=== PATIENT | female | born 1985 | race African-American/Black ===

== ENCOUNTER 2017-04-18 20:15 | Emergency (ER) | payer OTHER ==
[2017-04-18] MEDS ORDERED: Lorazepam 2 MG/ML VIAL ONE (20:41)
[2017-04-18] MEDS ORDERED: Metoclopramide HCl 10 MG/2 ML VIAL ONE (20:41)
[2017-04-18] MEDS ORDERED: Ketorolac Tromethamine 30 MG/ML VIAL ONE (20:41)
[2017-04-18] MEDS ORDERED: Fentanyl 100 MCG/2 ML VIAL ONE (20:41)
[2017-04-18] MEDS ORDERED: Dexamethasone 4 mg/ml Vial ONE (20:41)
[2017-04-18 20:44] LABS: #Basophils 0.1 thou/uL (0.0-0.2); #Eosinphils 0.2 thou/uL (0.0-0.7); #Lymphocytes 2.9 thou/uL (1.20-3.40); #Monocytes 0.5 thou/uL (0.11-0.59); #Neutrophils 8.6 thou/uL (1.40-6.50); %Basophils 0.7 % (0.0-1.0); %Eosinophils 1.9 % (0.0-10.0); %Lymphocytes 23.3 % (21.0-51.0); %Monocytes 4.4 % (0.0-10.0); Hematocrit 41.1 % (36.0-47.0); White Blood Cell (WBC) Count 12.3 thou/uL (4.8-10.8)
[2017-04-18 21:09] LABS: Troponin I Less than 0.010 ng/mL (< 0.028)
--- NOTE | 2017-04-18 21:19 | RAD ---
AP VIEW CHEST: 04/18/17 HISTORY: Chest pain associated with cough. AP view chest is obtained. The lungs are well aerated. No evidence of active intrathoracic disease s een. No evidence of effusions, pneumonia, or pneumothorax seen. IMPRESSION: Unremarkable AP view chest. POS: [facility]
--- NOTE | 2017-04-18 21:21 | CT ---
CT BRAIN: 04/18/17 HISTORY: 32-year-old female with history of severe headache. A noncontrast enhanced CT images of the brain is obtained from base of skull to the vertex. The brai n and bone windows obtained. CT images of the brain demonstrate the brain to be unremarkable. No evidence of intracranial masses, hemorrhages or strokes or contusions seen. Ventricle are of normal size. IMPRESSION: Normal CT brain. POS: [facility]
[2017-04-18 21:59] LABS: Calcium 9.3 mg/dL (7.8-10.44); Chloride 102 mmol/L (98-107)
[2017-04-18 22:00] LABS: Globulin 3.9 g/dL (2.4-3.5)
[2017-04-18 22:01] LABS: Anion Gap 13 mmol/L (10-20); Carbon Dioxide 26 mmol/L (22-29)
[2017-04-18 22:02] LABS: Bilirubin, Total 0.5 mg/dL (0.2-1.2)
[2017-04-18 22:03] LABS: Alkaline Phosphatase 118 U/L (40-150)
[2017-04-18 22:04] LABS: BUN (Urea Nitrogen) 9 mg/dL (7.0-18.7); Calc. Creatinine Clearance 0 mL/min (70-130); Estimated GFR-MDRD Greater than 90
[2017-04-18 22:05] LABS: AST (SGOT) 20 U/L (5-34)
[2017-04-18 22:06] LABS: ALT (SGPT) 28 U/L (8-55); CK (CPK) 219 U/L (29-168); Lipase 23 U/L (8-78)
== END 2017-04-18 22:34 | disposition home or self-care (01) ==
LOC: ERS 20:15
DX: R51 Headache (principal); F41.9 Anxiety disorder, unspecified; H66.92 Otitis media, unspecified, left ear; E11.9 Type 2 diabetes mellitus without complications; I10 Essential (primary) hypertension; G89.29 Other chronic pain; M54.9 Dorsalgia, unspecified
CPT/HCPCS: 36415; 70450; 71010; 80053; 82553; 83690; 84484; 85025; 93005; 96365; 96375; J1100; J1885; J2060; J2765; J3010

== ENCOUNTER 2017-07-28 19:30 | Outpatient (CLI) | payer OTHER | END 2017-07-28 19:31 | disposition home or self-care (01) | LOC: SLEEPLAB 19:30 | PROVIDERS: ATTEND Internal Medicine | DX: G47.33 Obstructive sleep apnea (adult) (pediatric) (principal); G47.10 Hypersomnia, unspecified; R06.83 Snoring; R06.81 Apnea, not elsewhere classified; G47.00 Insomnia, unspecified | CPT/HCPCS: 95811 ==

== ENCOUNTER 2017-08-10 09:46 | Emergency (ER) | payer OTHER ==
[2017-08-10] MEDS ORDERED: Acetaminophen 500 MG TAB ONE (11:01)
== END 2017-08-10 11:30 | disposition home or self-care (01) ==
LOC: ERS 09:46
DX: B34.9 Viral infection, unspecified (principal); E11.9 Type 2 diabetes mellitus without complications; I10 Essential (primary) hypertension; G43.909 Migraine, unspecified, not intractable, without status migrainosus; F41.9 Anxiety disorder, unspecified
CPT/HCPCS: 99283

== ENCOUNTER 2017-08-17 15:44 | Emergency (ER) | payer OTHER ==
[2017-08-17] MEDS ORDERED: Ibuprofen 200 MG TAB ONE (16:07)
[2017-08-17] MEDS ORDERED: traMADol HCl 50 MG TAB ONE (16:14)
--- NOTE | 2017-08-17 16:27 | RAD ---
CHEST 1 VIEW: HISTORY: A 32-year-old female with a history of chest pain worse with coughing and lifting arm without fever. COMPARISON: 04/18/17. FINDINGS: Monitor leads overlie the chest. Exam is somewhat limited because of large body habitus. No conflue nt pneumonia, overt edema, or pleural effusion. IMPRESSION: No acute intrathoracic disease. Stable from prior study. POS: [facility]
[2017-08-17] MEDS ORDERED: Ketorolac Tromethamine 30 MG/ML VIAL ONE (16:45)
[2017-08-17] MEDS ORDERED: Benzonatate 100 MG CAP ONE (16:45)
== END 2017-08-17 17:31 | disposition home or self-care (01) ==
LOC: ERS 15:44
DX: J98.01 Acute bronchospasm (principal); J06.9 Acute upper respiratory infection, unspecified; R07.89 Other chest pain; E11.9 Type 2 diabetes mellitus without complications; I10 Essential (primary) hypertension; G43.909 Migraine, unspecified, not intractable, without status migrainosus; F41.9 Anxiety disorder, unspecified; Z79.899 Other long term (current) drug therapy; Z79.4 Long term (current) use of insulin; Z79.82 Long term (current) use of aspirin
CPT/HCPCS: 71045; 93005; 96372; J1885

== ENCOUNTER 2018-01-11 17:43 | Observation (INO) | payer OTHER, SELFPAY ==
[~2018-01-11 17:43] MED LIST: ISOVUE-370 76%-LOCM 1 ML ONE
[2018-01-11 18:25] LABS: #Basophils 0.1 thou/uL (0.0-0.2); #Eosinphils 0.3 thou/uL (0.0-0.7); #Lymphocytes 4.3 thou/uL (1.20-3.40); #Monocytes 0.6 thou/uL (0.11-0.59); #Neutrophils 6.5 thou/uL (1.40-6.50); %Basophils 0.9 % (0.0-1.0); %Eosinophils 2.5 % (0.0-10.0); %Lymphocytes 36.5 % (21.0-51.0); %Monocytes 5.4 % (0.0-10.0); %Neutrophils 54.7 % (42.0-75.0); Hemoglobin 12.4 g/dL (12.0-16.0); Mean Corpuscular HGB CONC 33.2 g/dL (32.0-36.0); Mean Corpuscular Hemoglobin 31.2 pg (27.0-31.0); Mean Platelet Volume 6.6 fL (7.4-10.4); Platelet Count 426 thou/uL (130-400); RBC Distribution Width 11.7 % (11.5-14.5); Red Blood Cell (RBC) Count 3.98 mill/uL (4.20-5.40); White Blood Cell (WBC) Count 11.8 thou/uL (4.8-10.8)
[2018-01-11 18:30] LABS: BHCG - Serum Negative (NEGATIVE); Pregs Control Background? CLEAR/WHITE (CLR/WHITE); Pregs Control Bar Appear? YES (CONTROL BAR)
[2018-01-11 18:48] LABS: ALT (SGPT) 36 U/L (8-55); AST (SGOT) 28 U/L (5-34); Albumin 4.4 g/dL (3.5-5.0); Alkaline Phosphatase 106 U/L (40-150); Anion Gap 15 mmol/L (10-20); BUN (Urea Nitrogen) 12 mg/dL (7.0-18.7); Bilirubin, Total 0.5 mg/dL (0.2-1.2); CK (CPK) 276 U/L (29-168); Calc. Creatinine Clearance 0 mL/min (70-130); Calcium 9.7 mg/dL (7.8-10.44); Carbon Dioxide 26 mmol/L (22-29); Chloride 99 mmol/L (98-107); Estimated GFR-MDRD 84; Globulin 3.8 g/dL (2.4-3.5); Glucose 157 mg/dL (70-105); Lipase 28 U/L (8-78); Potassium 3.7 mmol/L (3.5-5.1); Protein, Total 8.2 g/dL (6.0-8.3); Sodium 136 mmol/L (136-145)
[2018-01-11 18:53] LABS: CKMB 1.3 ng/mL (0-6.6); Troponin I Less than 0.010 ng/mL (< 0.028)
[2018-01-11 19:13] LABS: Bilirubin Negative (Negative); Blood, Urine Negative (Negative); Clarity CLEAR (Clear); Glucose, Urine (Dipstick) Negative (Negative); Leukocyte Negative (Negative); Nitrite Negative (Negative); Protein, Urine (Dipstick) Negative (Neg-Trace); Specific Gravity, Urine 1.026 (1.002-1.036)
--- NOTE | 2018-01-11 19:15 | RAD ---
SINGLE VIEW OF THE CHEST: 01/11/18 COMPARISON: 08/17/17 HISTORY: Chest pain. FINDINGS: Single view of the chest shows a normal sized cardiomediastinal silhouette. There is no evidence of c onsolidation, mass, or pleural effusion. The bones are unremarkable. IMPRESSION: No evidence of acute cardiopulmonary disease. POS: [facility]
[2018-01-11 20:12] LABS: Acetaminophen Less than 6.0 mcg/mL (10.0-30.0); Alcohol Less than 10 mg/dL (Less than 10); Salicylate Less than 8.0 mg/dL (15.0-30.0)
[2018-01-11] MEDS ORDERED: Enoxaparin Sodium 80 MG/0.8 ML SYRINGE ONE (21:02)
[2018-01-11] MEDS ORDERED: Metoprolol Tartrate 5 MG/5 ML VIAL ONE (21:08)
--- NOTE | 2018-01-11 21:25 | CT ---
CT ANGIOGRAM THORAX WITH IV CONTRAST AND 3D RECONSTRUCTIONS 01/11/18 HISTORY: Chest tightness and heart palpitations, shortness of breath. COMPARISON: None available. FINDINGS: There is suboptimal timing of the contrast bolus, and the pulmonary arteries are not well opacified. There is no large filling defect seen involving the central pulmonary arteries, but a pulmonary embol us involving the segmental or subsegmental pulmonary arteries cannot be excluded based on this exam. Thoracic aorta is normal in caliber without evidence of an aortic dissection. There is dependent atelectasis. The lungs are otherwise clear. No pulmonary nodule, mass, or pleural effusion is seen. Upper abdomen demonstrates post cholecystectomy changes. The visualized liver demonstrates decreased attenuation suggesting diffuse fatty infiltration. Post cholecystectomy changes are noted. IMPRESSION: 1. Suboptimal evaluation for pulmonary embolus due to the timing of the contrast bolus. While no definite pulmonary embolus is seen involving the central pulmonary arteries, pulmonary embolus at th e segmental or subsegmental levels could not be excluded based on this exam. 2. Thoracic aorta is normal in caliber. 3. Diffuse fatty infiltration of the liver. POS: [facility]
[2018-01-11 21:46] LABS: Amphetamine Not Detected (NotDetected); Barbiturates Screen Not Detected (NotDetected); Benzodiazepine Screen Not Detected (NotDetected); Cocaine Metabolite Screen Not Detected (NotDetected); Medtox Control Line Valid? VALID (VALID); Medtox Reader # READER 1; Methadone Not Detected (NotDetected); Methamphetamine Not Detected (NotDetected); Opiate Screen Not Detected (NotDetected); Oxycodone Screen Not Detected (NotDetected); Phencyclidine (PCP) Not Detected (NotDetected); THC/Cannabinoid Screen Not Detected (NotDetected); Tricyclic Screen Detected (NotDetected)
[2018-01-11] MEDS ORDERED: Sodium Bicarb 50 MEQ/50 ML Abboject 8.4% SYRINGE ONE (21:55)
[2018-01-11 22:18] LABS: Troponin I Less than 0.010 ng/mL (< 0.028)
[2018-01-11] MEDS ORDERED: Sodium Chloride 0.9% 1,000 ML IV SCH (22:45)
[2018-01-11] MEDS ORDERED: Ondansetron ODT 4 MG TAB SL PRN (22:46)
[2018-01-11] MEDS ORDERED: Ondansetron HCl/PF 4 MG/2 ML Vial IVP PRN (22:46)
[2018-01-11] MEDS ORDERED: PROVENTIL INHALER 6.7 G (200 INHALATIONS) INH PRN (23:23)
[2018-01-11] MEDS ORDERED: Dextrose 5% in Water 1,000 ML IV PRN (23:27)
[2018-01-11] MEDS ORDERED: Insulin Regular 300 UNITS/3 ML VIAL SC PRN (23:27)
[2018-01-11] MEDS ORDERED: Dextrose 50% Abboject 50 ML SYRINGE SLOW IVP PRN (23:27)
[2018-01-11] MEDS ORDERED: Fluticasone Propionate Nasal Spray 16 gm Bottle NASAL SCH (23:45)
[2018-01-11] MEDS ORDERED: Atorvastatin Calcium 40 MG TAB PO SCH (23:45)
[2018-01-11] MEDS ORDERED: Cyclobenzaprine 10 MG TAB PO SCH (23:45)
[2018-01-11] MEDS ORDERED: Cetirizine HCl 10 MG TAB PO SCH (23:45)
[2018-01-11] MEDS ORDERED: busPIRone HCl 10 MG TAB PO SCH (23:45)
[2018-01-12] MEDS ORDERED: Gabapentin 400 MG CAP PO SCH (00:01)
[2018-01-12] MEDS ORDERED: Insulin Glargine 50 UNITS in Pre-Filled Syringe 1 EACH SC SCH ×2 (00:15→21:00)
[2018-01-12 01:18] LABS: Troponin I 0.018 ng/mL (< 0.028)
[2018-01-12] MEDS ORDERED: Mometasone/Formoterol 120 PUFF INHALER INH SCH (06:30)
[2018-01-12] MEDS ORDERED: Acetaminophen 325 MG TAB PO PRN (08:55)
[2018-01-12] MEDS ORDERED: Dextrose 50% Abboject 50 ML SYRINGE SLOW IVP PRN (08:55)
[2018-01-12] MEDS ORDERED: Dextrose 5% in Water 1,000 ML IV PRN (08:55)
[2018-01-12] MEDS ORDERED: Furosemide 20 MG TAB PO SCH (09:00)
[2018-01-12] MEDS ORDERED: Meloxicam 15 MG TAB PO SCH (09:00)
[2018-01-12] MEDS ORDERED: Hydrochlorothiazide 25 MG TAB PO SCH (09:00)
[2018-01-12] MEDS ORDERED: [UNRECOGNIZED DRUG - OTHER] EA EYE SCH (09:00)
[2018-01-12] MEDS ORDERED: Fluticasone Propionate Nasal Spray 16 gm Bottle NASAL SCH (09:00)
[2018-01-12] MEDS ORDERED: busPIRone HCl 10 MG TAB PO SCH (09:00)
[2018-01-12] MEDS ORDERED: Losartan 25 MG TAB PO SCH (09:00)
[2018-01-12] MEDS ORDERED: Azelastine 137 MCG/Spray 30 ML NS SCH (09:00)
[2018-01-12] MEDS ORDERED: cloNIDine 0.1 MG TAB PO SCH (09:00)
[2018-01-12] MEDS ORDERED: Aspirin 325 MG TAB PO SCH (09:00)
[2018-01-12] MEDS ORDERED: Enoxaparin Sodium 40 MG/0.4 ML SYRINGE SC SCH (09:00)
[2018-01-12] MEDS ORDERED: Cetirizine HCl 10 MG TAB PO SCH (09:00)
[2018-01-12] MEDS: Gabapentin 400 MG CAP PO SCH ×2 (09:35→15:31)
--- NOTE | 2018-01-12 10:19 | HP ---
PRIMARY CARE PHYSICIAN: Dr. Velasco at the [place]. CHIEF COMPLAINT: Chest pain and fast heart rate. HISTORY OF PRESENT ILLNESS: Ms. Pacheco is a very pleasant 32-year-old female that has a history of h ypertension and diabetes mellitus. She says that she was recently diagnosed with hypertension about 2 years ago and ever since then she says her heart rate was noted to be elevated. She says that she is enrolled in a program at the [place] called [facility] and she says it is a program that tries to estab ramesh healthy living habits and health habits. She says she has been trying to lose weight through is program and she noted that her heart rate had been elevated and she also said that she started hav ing some pain in the back of her neck and going down into the left side of her chest and she also say s that she has been having shortness of breath. She says she could barely walk a few feet without be coming extremely short of breath and she also noted some swelling off and on. She talked with the do ctors at the [facility] and they recommended that she come to the ER for evaluation. Also, she has n oted that she was feeling some palpitations off and on. She also noted increasing lower extremity ed chinedu and says that she had gained quite a bit of weight lately. As a result, she was put on "a fluid pill" and this helped her to lose some of the weight. She says she had gained about [address] being placed on a fluid pill, she lost 15 pounds. She also says that in the evaluation for the h eart rate, she was sent to see a fire engine pump operator at the [place]. There, they did a stress test and she says it was reported as being negative. They said they could not find the reason for her fast heart rate and she apparently had a followup appointment made. Also, in the emergency room, she had a CT angiog hilton of her chest in which there was some difficulty with the test with coordinating the IV bolus with the CT scan; however, it was negative for any central large pulmonary embolism. The patient states that she does not believe that she has ever had an echo. REVIEW OF SYSTEMS: All systems were reviewed and are negative except for that mentioned in the histo ry of present illness. PAST MEDICAL HISTORY: Significant for obstructive sleep apnea, chronic low back pain, hypertension, diabetes mellitus, anxiety and migraines. PAST SURGICAL HISTORY: She has had a x2, surgery on her left wrist and a cholecystectomy. ALLERGIES: To LISINOPRIL which she says makes her feel like something is constantly in her throat an d coughs, AMLODIPINE and VERAPAMIL, which caused her to swell. SOCIAL HISTORY: She is single, has 2 children. She is a nonsmoker, nondrinker. FAMILY HISTORY: Significant for heart disease, diabetes, asthma, pancreatic cancer in her father and history of mental illness in the family. HOME MEDICATIONS: Include albuterol inhaler 2 puffs p.r.n., aspirin 325 mg daily, Lipitor 40 mg at b edtime, Astelin nasal spray, Symbicort 2 puffs twice a day, Zyrtec 10 mg twice a day, Flexeril 20 mg at bedtime, Cymbalta 20 mg daily, Flonase nasal spray, furosemide 20 mg daily, gabapentin 800 mg t.i. d., hydrochlorothiazide 25 mg daily, Levemir 50 units at bedtime, NovoLog 25 units 3 times a day with meals, losartan 100 mg daily, Meloxicam 15 mg daily, BuSpar 20 mg twice a day, clonidine 0.1 mg heaven y, metformin 1000 mg twice a day. PHYSICAL EXAMINATION: GENERAL: She is alert and oriented. She appears to be in no acute distress. VITAL SIGNS: Blood pressure 132/87, heart rate is 109, respiratory rate of 20, temperature is 98.9. HEENT: Pupils are equal, round, and reactive. Extraocular muscles are intact. Sclerae are anicteri c. Throat; no erythema, no exudates. NECK: No adenopathy, no bruits. LUNGS: Clear to auscultation. There was no wheezing, no rales. CARDIOVASCULAR: She had a normal S1 and S2. I did not appreciate an S3 or S4. No murmurs, clicks, no rubs. ABDOMEN: Obese, it is soft, nontender and nondistended. Positive for bowel sounds. There is no russel ound, no guarding. EXTREMITIES: She has got trace lower extremity edema in the left is greater than the right. No skin lesions. She has got palpable dorsalis pedis pulses. There are no rashes. LABORATORY DATA: She has had 2 sets of troponins which were negative. TSH was within normal. The p atient had a white blood cell count of 11.8, hemoglobin 12.4, hematocrit is 37.4, platelet count is 4 26. Her EKG was sinus tachycardia. There was no ST wave changes. She had a CT angiogram of the chest sh owing suboptimal evaluation for pulmonary embolism due to the timing of the contrast bolus, but there was no definite evidence of pulmonary embolism in the central pulmonary arteries. ASSESSMENT: 1. This is a pleasant 32-year-old female that presents to the emergency room with dyspnea on exertio n and pain around her neck and shoulders, also has a sinus tachycardia. In discussion with the patie nt, it sounds like she has had a recent stress test which is reported as being negative. She has not had an echocardiogram; however, and her CT angiogram in the ER was suboptimal. Therefore, she will be placed in observation and we will try to rule out pulmonary embolism with a greater degree of cert ainty by getting a VQ scan and will also get bilateral lower extremity venous Dopplers. If this is n egative, then I would feel that pulmonary embolism has been ruled out. Her BNP was normal. However, she has not had a recent echo and she does have a history of at least 2 years of hypertension. Ther efore, we will get an echocardiogram. If these tests are negative, then she may just have an inappro priate tachycardia, possibly due to physical deconditioning and can be placed empirically on a beta b locker. 2. For her hypertension, we will continue her usual home medications. 3. Diabetes mellitus. Once again, continue her usual home medications as well as sliding scale insu sona and she will be placed on deep venous thrombosis and gastrointestinal prophylaxis.
--- NOTE | 2018-01-12 12:13 | NM ---
VQ SCAN: INDICATION: History of chest pain and undifferentiated tachycardia. COMPARISON: Prior CTA examination dated 01/21/18 of the thorax. RADIOPHARMACEUTICAL: 15.6 mCi Xenon 13 inhaled and 5.3 mCi of Technetium 99m-MAA IV. FINDINGS: No large pleural-based perfusion defect is seen on the perfusion images. No ventilatory defect is se en on the ventilation images. IMPRESSION: Low probability VQ scan for PE. POS: [facility]
--- NOTE | 2018-01-12 12:33 | ULT ---
ULTRASOUND WITH DOPPLER DUPLEX VENOUS LOWER EXTREMITY BILATERAL: CPT: 95403 ICD-10-PCS: B54D HISTORY: Bilateral lower extremity edema. TECHNIQUE: Color flow Doppler, spectral waveform analysis of pulsed Doppler, and dhaliwal-scale imaging with corinne eunice and augmentation, were used to evaluate the bilateral common femoral, femoral, popliteal, deaf and hard of hearing teacher ior tibial, and superficial femoral, veins; and the proximal portions of the profunda femoral and gre ater saphenous, veins. FINDINGS: Appropriate compressibility and flow is demonstrated within the imaged aspect of each lower extremity . IMPRESSION: No deep vein thrombosis of the bilateral lower extremities. POS: [facility]
[2018-01-12] MEDS ORDERED: traMADol HCl 50 MG TAB PO PRN (15:50)
[2018-01-12 15:55] VITALS: BP 113/75; TEMP 99.2
[2018-01-12] MEDS ORDERED: Carvedilol 6.25 MG TAB PO SCH (17:00)
[2018-01-12] MEDS ORDERED: Cyclobenzaprine 10 MG TAB PO SCH (21:00)
[2018-01-12] MEDS ORDERED: Non-Formulary Item 1 EACH (Levemir Flexpen [Levemir Flexpen] 50 UNIT) SC SCH (21:00)
[2018-01-12] MEDS ORDERED: Atorvastatin Calcium 40 MG TAB PO SCH (21:00)
--- NOTE | 2018-01-13 00:49 | DIS ---
DATE OF ADMISSION: 01/11/2018 DATE OF DISCHARGE: 01/12/2018 PRIMARY CARE PHYSICIAN: Dr. Velasco at the [facility]. DISCHARGE DISPOSITION: Home. PRIMARY DISCHARGE DIAGNOSES: 1. Sinus tachycardia. 2. Hypertension. 3. Diabetes mellitus, type 2. 4. Morbid obesity. The patient is 5 feet 6, 333 pounds, BMI is over 50. 5. Chronic anxiety. 6. History of migraine headaches. 7. Chronic low back pain. DISCHARGE MEDICATIONS: Coreg 6.25 mg twice a day was added to her regimen. She is to continue metfo rmin 1000 mg twice daily, meloxicam 15 mg daily, Cozaar 100 mg daily, Levemir insulin 50 units at bed time, NovoLog 25 units t.i.d., hydrochlorothiazide 25 mg daily, gabapentin 800 mg t.i.d., lodoxamide tromethamine eyedrops daily, Cymbalta 20 mg daily, Flexeril 20 mg at bedtime, clonidine 0.1 mg daily, Zyrtec 10 mg twice a day, BuSpar 20 mg twice daily, Symbicort 160/4.5 two puffs twice a day, Astelin 137 mcg 2 sprays in each naris daily, Lipitor 40 mg at bedtime, aspirin 325 mg daily, ProAir inhaler 2 puffs q.i.d. PROCEDURES DONE DURING ADMISSION: The patient had a CT angiogram of the chest, which was suboptimal evaluation for pulmonary embolism given the timing of the bolus, but there was no evidence of pulmona ry embolism in the central pulmonary arteries. The patient had a V/Q scan which was low probability for PE also had lower extremity venous Dopplers, which were negative for deep vein thrombosis. She h ad an echocardiogram, which showed an ejection fraction estimated at 55% to 60%, normal left atrium s ize, left ventricular size was normal. No significant valvular disease. CODE STATUS: FULL CODE. ALLERGIES: AMLODIPINE, VERAPAMIL, and LISINOPRIL. HOSPITAL COURSE: Ms. Pacheco is a pleasant 32-year-old female who came to the emergency room after ex periencing rapid heart rate and some shortness of breath. She notices primarily on exertion but admi ts to having a fairly high resting heart rate. Her symptoms had worsened and for this reason, she ca me to the ER for evaluation. She was placed in observation and there was concern for pulmonary embol ism. This was ruled out via V/Q scan and lower extremity Dopplers, which were negative as well as lo w probability scan for PE. CT scan was equivocal, but negative for a large central pulmonary embolis m. Thyroid screen with a TSH was normal and she reports a recent stress test through the [facility]. It is suspected that she could be physically deconditioned as a possibility for the resting tachycardia or could be related to her medications for asthma as well as depression. We will be placing her on a be ta-ortega empirically and I did warn her that the beta-ortega could worsen her asthma symptoms and to be cautious about this and also to have close followup at the [facility] in 1-2 weeks.
--- NOTE | 2018-01-18 12:21 | EKG ---
Test Reason : CHEST PAIN Blood Pressure : / mmHG Vent. Rate : 116 BPM Atrial Rate : 116 BPM P-R Int : 132 ms QRS Dur : 088 ms QT Int : 336 ms P-R-T Axes : 024 026 028 degrees QTc Int : 467 ms Sinus tachycardia Otherwise normal ECG Confirmed by PRISCILA GRACE, CRYS ([id number]), communications editor JOSE ALBERTO SARKAR ([id number]) on 01/18/2018 12:21:14 PM Referred By: Confirmed By:CRYS FRANCOIS MD
== END 2018-01-12 18:36 | disposition home or self-care (01) ==
LOC: ERS 17:43 → 2SW 20:15
PROVIDERS: ADMIT Hospitalist; ATTEND Hospitalist
DX: R00.1 Bradycardia, unspecified (principal); I10 Essential (primary) hypertension; E66.01 Morbid (severe) obesity due to excess calories; E11.9 Type 2 diabetes mellitus without complications; F41.9 Anxiety disorder, unspecified; M54.5 Low back pain; G47.33 Obstructive sleep apnea (adult) (pediatric); Z68.43 Body mass index [BMI] 50.0-59.9, adult; Z79.82 Long term (current) use of aspirin; Z79.4 Long term (current) use of insulin; Z79.899 Other long term (current) drug therapy; Z88.8 Allergy status to other drugs, medicaments and biological substances
CPT/HCPCS: 36415; 36416; 71045; 71275; 78582; 80053; 80306; 80307; 81003; 82010; 82550; 82553; 83690; 83880; 84443; 84484; 84703; 85025; 93005; 93306; 93970; 96361; 96372; 96374; 96375; A9540; A9558; G0378; J1650; J1815

== ENCOUNTER 2019-10-21 15:27 | Emergency (ER) | payer OTHER, SELFPAY ==
[2019-10-21] MEDS ORDERED: Ketorolac Tromethamine 30 MG/ML VIAL ONE (15:39)
== END 2019-10-21 16:42 | disposition home or self-care (01) ==
LOC: ERS 15:27
DX: S16.1XXA Strain of muscle, fascia and tendon at neck level, initial encounter (principal); E11.9 Type 2 diabetes mellitus without complications; I10 Essential (primary) hypertension; F41.9 Anxiety disorder, unspecified; F31.9 Bipolar disorder, unspecified; Z79.4 Long term (current) use of insulin; Z79.82 Long term (current) use of aspirin; Z79.899 Other long term (current) drug therapy; V43.52XA Car driver injured in collision with other type car in traffic accident, initial encounter
CPT/HCPCS: 96372; 99284; J1885

== ENCOUNTER 2023-11-30 20:03 | Emergency (ER) | payer BC ==
[2023-11-30 23:04] LABS: #Basophils 0.04 10x3/uL (0.0-0.2); %Basophils 0.4 % (0.0-1.0); %Eosinophils 3.5 % (0.0-10.0); %Lymphocytes 36.7 % (21.0-51.0); %Monocytes 6.3 % (0.0-10.0); Hematocrit 31.6 % (36.0-47.0); Hemoglobin 10.1 g/dL (12.0-16.0); Mean Corpuscular Hemoglobin 31.2 pg (27.0-31.0); Mean Corpuscular Volume 97.5 fL (78.0-98.0); Mean Platelet Volume 9.7 fL (7.4-10.4); Platelet Count 398 10x3/uL (130-400); RBC Distribution Width 12.5 % (11.5-14.5); Red Blood Cell (RBC) Count 3.24 mill/uL (4.20-5.40)
[2023-11-30 23:26] LABS: ALT (SGPT) 11 U/L (8-55); AST (SGOT) 15 U/L (5-34); Albumin 3.4 g/dL (3.5-5.0); Alkaline Phosphatase 95 U/L (40-110); Anion Gap 11 mmol/L (10-20); BUN (Urea Nitrogen) 15 mg/dL (7.0-18.7); Bilirubin, Total 0.3 mg/dL (0.2-1.2); Calc. Creatinine Clearance 0 mL/min (70-130); Calcium 9.2 mg/dL (7.8-10.44); Carbon Dioxide 22 mmol/L (22-29); Chloride 110 mmol/L (98-107); Estimated GFR 94; Globulin 3.3 g/dL (2.4-3.5); Glucose 66 mg/dL (70-105); Potassium 3.6 mmol/L (3.5-5.1); Protein, Total 6.7 g/dL (6.0-8.3); Sodium 139 mmol/L (136-145)
[2023-11-30 23:27] LABS: Acetaminophen Less than 10 mcg/mL (10.0-30.0); Alcohol Less than 10.0 mg/dL (Less than 10); Salicylate Less than 8.0 mg/dL (15.0-30.0)
[2023-11-30 23:31] LABS: Troponin I Less than 0.010 ng/mL (< 0.028)
[2023-11-30 23:47] LABS: BHCG - Serum Negative (NEGATIVE); Pregs Control Background? CLEAR/WHITE (CLR/WHITE); Pregs Control Bar Appear? YES (CONTROL BAR)
== END 2023-12-01 00:18 | disposition home or self-care (01) ==
LOC: ERS 20:03
DX: I95.9 Hypotension, unspecified (principal); R42 Dizziness and giddiness; I10 Essential (primary) hypertension; E11.9 Type 2 diabetes mellitus without complications
CPT/HCPCS: 70450; 80053; 80307; 84443; 84484; 84703; 85025; 93005